=== PATIENT | female | born 1935 | race Caucasian/White ===

== ENCOUNTER 2017-03-03 11:24 | Observation (INO) | payer OTHER ==
[~2017-03-03] VITALS: Ht 160 cm; Wt 54.9 kg
[2017-03-03 13:36] LABS: RED BLOOD COUNT 3.85 M/UL (4.00-5.10); WHITE BLOOD COUNT 8.2 K/UL (4.5-11.0)
[2017-03-03 13:59] LABS: BUN/CREATININE RATIO 23 (0-10)
[2017-03-03] MEDS ORDERED: NEURONTIN 100100 MG PO (20:01)
[2017-03-03] MEDS ORDERED: HYDROCHLOROTHIA25 MG PO (20:02)
[2017-03-03] MEDS ORDERED: LOVASTATIN20 MG PO (20:02)
[2017-03-03 20:50] LABS: HEMOGLOBIN 10.5 gm/dl (12.3-15.3)
[2017-03-04 04:37] LABS: HEMOGLOBIN 9.7 gm/dl (12.3-15.3)
[2017-03-04 04:43] LABS: RED BLOOD COUNT 3.45 M/UL (4.00-5.10); WHITE BLOOD COUNT 5.5 K/UL (4.5-11.0)
[2017-03-04 04:56] LABS: BUN/CREATININE RATIO 28 (0-10)
[2017-03-04 13:44] LABS: HEMOGLOBIN 9.5 gm/dl (12.3-15.3)
[2017-03-04] MEDS ORDERED: PROTONIX 40 MG40 M1 PO (16:01)
== END 2017-03-04 17:50 | disposition home or self-care (01) ==
LOC: ER1 11:24 → M/S 15:10 → ZEROF 15:10 → M/S 19:22
PROVIDERS: Physician Assistant; ADMIT Family Medicine
PROC: 0DJ08ZZ Inspection of Upper Intestinal Tract, Via Natural or Artificial Opening Endoscopic (ICD-10-PCS; principal; 2017-03-03)
DX: K25.9 Gastric ulcer, unspecified as acute or chronic, without hemorrhage or perforation (principal); D62 Acute posthemorrhagic anemia; I10 Essential (primary) hypertension; E78.5 Hyperlipidemia, unspecified; Z86.19 Personal history of other infectious and parasitic diseases; Z80.8 Family history of malignant neoplasm of other organs or systems; Z82.49 Family history of ischemic heart disease and other diseases of the circulatory system; Z79.899 Other long term (current) drug therapy; Z98.890 Other specified postprocedural states
CPT/HCPCS: 36415; 80048; 80053; 82272; 83735; 84484; 85014; 85018; 85025; 85027; 85610; 85730; 86850; 86900; 86901; 93005; 96374; 99285; C9113; G0378; J2250; J7030; J7040

== ENCOUNTER → 2021-07-30 | Outpatient (CLI) | payer OTHER ==
[~2021-07-30] MED LIST: CATAPRES 0.1MG0.1 MG PO; HYDROCHLOROTHIA25 MG PO; LOVASTATIN20 MG PO; NEURONTIN 100100 MG PO; PROTONIX 40 MG40 M1 PO
== END ==
LOC: KOH-I 09:35
DX: S92.354A Nondisplaced fracture of fifth metatarsal bone, right foot, initial encounter for closed fracture (principal)
CPT/HCPCS: 73630

== ENCOUNTER → 2021-08-18 | Outpatient (CLI) | payer OTHER | LOC: KOH-I 10:45 | DX: S92.351A Displaced fracture of fifth metatarsal bone, right foot, initial encounter for closed fracture (principal) | CPT/HCPCS: 73630 ==

== ENCOUNTER → 2021-09-15 | Outpatient (CLI) | payer OTHER | LOC: KOH-I 10:52 | DX: S92.351D Displaced fracture of fifth metatarsal bone, right foot, subsequent encounter for fracture with routine healing (principal) | CPT/HCPCS: 73630 ==

== ENCOUNTER → 2021-12-03 | Outpatient (CLI) | payer OTHER ==
[2021-12-03 16:22] LABS: BORDETELLA PARAPERTUSSIS Not Detected (Not Detectd); BORDETELLA PERTUSSIS Not Detected (Not Detectd); CHLAMYDIA PNEUMONIAE Not Detected (Not Detectd); CORONAVIRUS HKU1 Not Detected (Not Detectd); CORONAVIRUS NL63 Not Detected (Not Detectd); CORONAVIRUS OC43 Not Detected (Not Detectd); CORONOAVIRUS 229E Not Detected (Not Detectd); HUMAN METAPNEUMOVIRUS Not Detected (Not Detectd); HUMAN RHINOVIRUS/ENTEROVIRUS Not Detected (Not Detectd); INFLUENZA A Not Detected (Not Detectd); INFLUENZA B Not Detected (Not Detectd); MYCOPLASMA PNEUMONIAE Not Detected (Not Detectd); PARAINFLUENZA VIRUS 1 Not Detected (Not Detectd); PARAINFLUENZA VIRUS 2 Not Detected (Not Detectd); PARAINFLUENZA VIRUS 3 Not Detected (Not Detectd); PARAINFLUENZA VIRUS 4 Not Detected (Not Detectd); RESPIRATORY SYNCYTIAL VIRUS Not Detected (Not Detectd)
[2021-12-03 17:35] LABS: SARS-CoV-2 NOT DETECTED (Not Detectd)
== END ==
LOC: LAB 16:09
PROVIDERS: Physician Assistant
DX: J06.9 Acute upper respiratory infection, unspecified (principal); Z20.822 Contact with and (suspected) exposure to COVID-19
CPT/HCPCS: 87633

== ENCOUNTER → 2021-12-10 | Outpatient (CLI) | payer OTHER ==
[~2021-12-10] VITALS: Ht 160 cm; Wt 54.9 kg
== END ==
LOC: EROP 10:52
DX: U07.1 COVID-19 (principal); Z23 Encounter for immunization; R09.81 Nasal congestion; I10 Essential (primary) hypertension
CPT/HCPCS: M0247; Q0247

== ENCOUNTER → 2022-01-26 | Outpatient (CLI) | payer OTHER | LOC: ECHO 01-15 10:00 | DX: R94.31 Abnormal electrocardiogram [ECG] [EKG] (principal); I08.1 Rheumatic disorders of both mitral and tricuspid valves | CPT/HCPCS: ECHO; 93306 ==

== ENCOUNTER → 2022-03-29 | Outpatient (CLI) | payer OTHER | LOC: KOH-I 09:38 | DX: M54.50 Low back pain, unspecified (principal); M43.12 Spondylolisthesis, cervical region; M51.36 Other intervertebral disc degeneration, lumbar region | CPT/HCPCS: 72100 ==